=== PATIENT | female | born 1955 | race Caucasian/White ===

== ENCOUNTER 2016-08-13 08:34 | Outpatient (CLI) | payer OTHER ==
[2013-12-03 19:00] VITALS: BP 158/99
[2016-08-13 09:22] LABS: eGFR (African) > 60; eGFR (Non-African) > 60
== END 2016-08-13 08:35 ==
LOC: LAB 08:34
PROVIDERS: ATTEND Family Medicine
DX: E11.9 Type 2 diabetes mellitus without complications (principal); I10 Essential (primary) hypertension
CPT/HCPCS: 36415; 80053; 80061; 82043; 83036

== ENCOUNTER 2016-11-20 10:04 | Emergency (ER) | payer OTHER ==
--- NOTE | 2016-11-20 10:33 | ED Physician Documentation ---
Nausea/Vomiting/Diarrhea - HISTORIAN Historian: patient, spouse - HPI Chief Complaint: Nausea,Vomiting,Diarrhea Additional Information: says she hasn't eaten since thursday. She thinks she got nervous about their house and that is what caused this. says she has had this happen before. nauseated, sick to her stomach every time she tries to eat. No other complaints Onset: days ago Duration: constant Timing: gradual onset, still present Context: denies: out of country travel, bad food, recent trauma Severity: mild Further Comments: no - Associated Symptoms Vomiting: mild Diarrhea: other (none) Abdominal Pain: none - ROS CONST: none CVS/RESP: denies: chest pain, shortness of breath, cough GI/: denies: constipation, black stools, dark urine, problems urinating EYES/ENT: none MS/SKIN/LYMPH: denies: joint pain, leg swelling NEURO/PSYCH: none - PAST HX Past History: diabetes Type 2 Surgeries/Procedures: none Allergies/Adverse Reactions: Allergies Allergy/AdvReac Type Severity Reaction Status Date / Time No Known Drug Allergies Allergy Verified 11/20/16 10:39 - SOCIAL HX Smoking History: non-smoker Alcohol Use: none Drug Use: none - FAMILY HX Family History: none - VITAL SIGNS Vital Signs: Vital Signs Temp Pulse Resp BP Pulse Ox 98.8 F 90 20 203/104 94 11/20/16 10:05 11/20/16 10:05 11/20/16 10:05 11/20/16 10:05 11/20/16 10:05 - REVIEWED ASSESSMENTS Nursing Assessment Reviewed: Yes Vitals Reviewed: Yes ED Results Lab/Radiology - Lab Results Lab Results: Lab Results 11/20/16 11/20/16 11/20/16 11:50 10:40 10:40 WBC 24.50 K/ul H K/ul (4.00-12.00) RBC 5.43 M/ul H M/ul (3.90-5.20) Hgb 15.3 g/dL g/dL (12.0-16.0) Hct 45.5 % % (34.5-46.5) MCV 83.8 fl fl (80.0-100.0) MCH 28.2 pg pg (28.0-34.0) MCHC 33.6 g/dL g/dL (30.0-36.0) RDW 13.0 % % (11.3-14.3) Plt Count 348 K/mm3 K/mm3 (130-400) Neut % (Auto) 87.2 % H % (39.0-79.0) Lymph % (Auto) 6.9 % L % (16.0-50.0) [place] % (Auto) 4.1 % % (0.0-11.0) Eos % (Auto) 1.1 % % (0.0-6.8) Baso % (Auto) 0.4 (0.0-1.5) Neut # (Auto) 21.3 # k/uL H # k/uL (1.4-7.7) Lymph # (Auto) 1.7 # k/uL # k/uL (0.6-4.0) [place] # (Auto) 1.0 # k/uL H # k/uL (0.0-0.9) Eos # (Auto) 0.3 # k/uL # k/uL (0.0-0.6) Baso # (Auto) 0.1 # k/uL # k/uL (0.0-0.5) Reactive Lymphs % 0.4 % % (0.0-5.0) Reactive Lymphs # 0.1 # k/uL # k/uL (0.0-0.8) Sodium 137 mmol/L mmol/L (136-145) Potassium 3.5 mmol/L mmol/L (3.5-5.0) Chloride 95 mmol/L L mmol/L (98-110) Carbon Dioxide 32 mmol/L mmol/L (20-32) BUN 18 mg/dL mg/dL (10-26) Creatinine 0.5 mg/dL mg/dL (0.4-1.5) Estimated Creat Clear 167 Est GFR ( Amer) > 60 (60 - ) Est GFR (Non-Af Amer) > 60 (60 - ) Glucose 304 mg/dL H mg/dL (70-99) Calcium 9.7 mg/dL mg/dL (8.5-10.5) Total Bilirubin 0.6 mg/dL mg/dL (0.2-1.2) AST 18 U/L U/L (0-41) ALT 19 U/L U/L (0-45) Alkaline Phosphatase 94 U/L U/L (46-116) Total Protein 7.9 g/dL g/dL (6.0-8.5) Albumin 5.1 g/dL g/dL (3.0-5.5) Amylase 60 U/L U/L (20-104) Urine Color Yellow (YELLOW) Urine Appearance Clear (CLEAR) Urine pH 6.5 (5.0 - 8.0) Ur Specific [place] >=1.030 H (1.010-1.030) Urine Protein 3+ mg/dL H mg/dL (NEGATIVE) Urine Ketones 3+ mg/dL H mg/dL (NEGATIVE) Urine Occult Blood Negative (NEGATIVE) Urine Nitrite Negative (NEGATIVE) Urine Bilirubin 1+ H (NEGATIVE) Urine Urobilinogen 0.2 Eu Eu (0.2-1.0) Ur Leukocyte Esterase Negative (NEGATIVE) Urine RBC 0-2 (0-2 HPF) Urine WBC 0-2 (0-5 HPF) Ur Squamous Epith Cells Few (NEG-FEW) Amorphous Sediment Few H (NEGATIVE) Urine Bacteria Few H (NEGATIVE) Urine Mucus Present H (NEGATIVE) Urine Glucose 2+ mg/dL H mg/dL (NEGATIVE) - Radiology Radiology Impressions: CT shows urinary inflammation. - Orders Orders: ED Orders Category Date Time Status ABD SERIES PA CHEST [RAD] Stat Exams 11/20/[address] ABDOMEN PELVIS S [CT ABD & PELVIS W/O CON] Stat Exams 11/20/16 Ordered AMYLASE Routine Lab 11/20/16 10:40 Completed CBC/PLATELET/DIFF Routine Lab 11/20/16 10:40 Completed CMP Routine Lab 11/20/16 10:40 Completed LIPASE Routine Lab 11/20/16 10:40 Received URINALYSIS Routine Lab 11/20/16 11:50 Completed 0.9 % Sodium Chloride [Normal Saline] Med 11/20/16 11:30 Ordered 1,000 ml IV 1T 0.9 % Sodium Chloride [Normal Saline] 1,000 ml Med 11/20/16 12:40 Discontinued IV .STK-MED 0.9 % Sodium Chloride [Normal Saline] 1,000 ml Med 11/20/16 12:53 Active IV Q1H CloNIDine HCL [Catapress] Med 11/20/16 10:53 Discontinued 0.1 mg PO NOW ONE Insulin Regular, Human [Humulin R] Med 11/20/16 11:06 Discontinued 10 unit IV NOW ONE Insulin Regular, Human [Humulin R] Med 11/20/16 11:15 Discontinued 5 unit IV NOW ONE Lidocaine 2%Visc 15ml [Xylocaine] Med 11/20/16 10:39 Discontinued 600 mg .ROUTE .STK-MED ONE Mag Hydrox/Al Hydrox/Simeth [Mylanta] Med 11/20/16 10:39 Discontinued 30 ml PO .STK-MED ONE Mag Hydrox/Al Hydrox/Simeth [Mylanta] 30 ml Med 11/20/16 10:38 Discontinued Lidocaine 2%Visc 15ml [Xylocaine] 20 mg PHENobarb/HYOSCY/ATROPINE/SCOP [] 10 ml PO NOW Ondansetron HCl/Pf [Zofran 4 mg/2 ml] Med 11/20/16 10:36 Discontinued 4 mg IVP NOW ONE Nausea Physical Exam - EXAM General Appearance: no acute distress, anxious EENT: eye inspection normal, ENT inspection normal, pharynx normal Neck: normal inspection, supple Respiratory: no resp distress, chest non-tender, breath sounds normal CVS: reg rate & rhythm, heart sounds normal, equal pulses Abdomen: non-tender Back: non-tender Skin: warm/dry, normal color Extremities: non-tender Neuro/Psych: oriented X3 Discharge Clincal Impression: Hypovolemia associated with vomiting, Hyperglycemia UTI (urinary tract infection) Qualifiers: Urinary tract infection type: acute cystitis Hematuria presence: without hematuria Qualified Code(s): N30.00 - Acute cystitis without hematuria Nausea & vomiting Qualifiers: Vomiting type: unspecified Vomiting Intractability: non-intractable Qualified Code(s): R11.2 - Nausea with vomiting, unspecified Clincal Impression: (Ruled Out): Hypovolemia Referrals: Alex Michele MD [Primary Care Provider] - 2 Days Condition: Stable Disposition: 01 HOME, SELF-CARE Decision to Admit: NO Date of Decison to Admit: 11/20/16 Decision Time: 13:19
[2016-11-20] MEDS ORDERED: ONDANSETRON HCL/PF 4 MG/ 2ML VIAL IVP ONE (10:36)
[2016-11-20] MEDS ORDERED: MAG HYDROX/AL HYDROX/SIMETH 30 ML, Lidocaine 2%Visc 15ml 20 MG, PHENobarb/HYOSCY/ATROPI... PO ONE ×3 (10:38)
[2016-11-20] MEDS ORDERED: Lidocaine 2%Visc 15ml 20 MG/ML UDC ONE (10:39)
[2016-11-20] MEDS ORDERED: MAG HYDROX/AL HYDROX/SIMETH 30 ML UDC PO ONE (10:39)
[2016-11-20 10:51] LABS: BASOPHILS % 0.4 (0.0-1.5); EOSINOPHILS % 1.1 % (0.0-6.8); MEAN CORPUSCULAR HEMOGLOBIN 28.2 pg (28.0-34.0); MEAN CORPUSCULAR VOLUME 83.8 fl (80.0-100.0); MONOCYTES % 4.1 % (0.0-11.0); NEUTROPHILS # 21.3 # k/uL (1.4-7.7)
[2016-11-20] MEDS ORDERED: CloNIDine HCL 0.1 MG TABLET PO ONE (10:53)
[2016-11-20 10:58] LABS: eGFR (African) > 60; eGFR (Non-African) > 60
[2016-11-20] MEDS ORDERED: INSULIN REGULAR, HUMAN 100 UNIT/ML 3ML VIAL IV ONE ×2 (11:06→11:15)
[2016-11-20] MEDS ORDERED: NORMAL SALINE 500 ML IV.SOLN IV SCH (11:30)
[2016-11-20 11:55] LABS: APPEARANCE,URINE Clear (CLEAR); COLOR,URINE Yellow (YELLOW); OCCULT BLOOD,URINE Negative (NEGATIVE); PH URINE 6.5 (5.0 - 8.0); UROBILINOGEN URINE 0.2 Eu (0.2-1.0)
[2016-11-20 12:03] LABS: AMORPHOUS SEDIMENT,UR FEW (NEGATIVE)
[2016-11-20] MEDS ORDERED: 0.9 % SODIUM CHLORIDE 1,000 ML IV ONE ×2 (12:40→12:53)
[2016-11-20 13:47] VITALS: BP 163/89
--- NOTE | 2016-11-20 15:11 | Diagnostic Imaging Report ---
[facility] [id number] [facility].[address] [id number] Report Submission Date: Nov 20, 2016 11:33:52 AM CDT Patient Study Name: JHONNY GONZALEZ Date: Nov 20, 2016 10:55:43 AM CDT Modality Type: CR Gender: F Description: CHEST,ABDOMEN : 53 Institution: [facility] Physician: [facility] Examination: Obstruction series History: Abdominal discomfort Findings: 5 views obtained of the chest and abdomen. Single view of the chest demonstrates a mildly hypoventilated inspiratory effort. Minimal crowding of the central vasculature. No gross consolidation or effusion. No abnormal dilation of the large or small bowel. Air and stool throughout the large bowel. No suspicious calcification projecting over the renal fossa or the lower pelvic region. Osseous structures are appropriate for age. Impression: No focal infiltrate. No ileus or obstruction. No suspicious calcifications by plain film sensitivity. Electronically signed on Nov 20, 2016 11:33:52 AM CDT by: Eddie BLANCHARD
--- NOTE | 2016-11-20 15:12 | Diagnostic Imaging Report ---
[facility] [id number] [facility] [address] [place], [place]. [address] Report Submission Date: Nov 20, 2016 12:03:04 PM CDT Patient Study Name: JHONNY GONZALEZ Date: Nov 20, 2016 11:15:20 AM CDT Modality Type: CT\SR Gender: F Description: CT ABD & PELVIS W/O CO : 53 Institution: [facility] Physician: [facility] Examination: CT Abdomen/pelvis History: Nausea. Elevated white count. Comparison exams: Plain film dated 20 November 2016 Technique: CT Abdomen/pelvis without contrast protocol. Findings: Liver, spleen, adrenal glands, right kidney, pancreas and gallbladder are without irregularity given exam technique. No gallstone. No renal calcifications. Ureters are nondilated in their course through the abdomen and pelvis. Mild mesenteric stranding involving the region surrounding the proximal left ureter. Scattered pelvic phleboliths. Abdominal aorta with mild peripheral atherosclerotic disease. No abnormal dilation. Bowel without contrast limiting evaluation. No evidence for acute mesenteric inflammation or free air. Stool throughout the large bowel limiting sensitivity. Appendix is visualized and is without inflammatory changes. Sigmoid diverticula. No adjacent inflammatory changes. Umbilical hernia with omental/fat involvement. No bowel involvement. Osseous structures demonstrate degenerative changes. Lung bases dependent atelectasis and scarring. Impression: Possible mild proximal left ureteral inflammation - ureteritis. No evidence for nephro or ureterolithiasis. Correlate with patient's symptoms and laboratory values. No other abdominal mass or acute inflammatory process given exam technique. No gallstone. No abnormal bowel dilation or inflammatory process. Sigmoid diverticulosis. No evidence for acute diverticulitis. Umbilical hernia with fat/omental involvement. No bowel involvement. Electronically signed on Nov 20, 2016 12:03:04 PM CDT by: Eddie BLANCHARD
[2016-11-20 17:02] LABS: LIPASE 47 U/L (13-60)
== END 2016-11-20 13:30 | disposition home or self-care (01) ==
LOC: ED 10:04
DX: R73.9 Hyperglycemia, unspecified (principal); N30.00 Acute cystitis without hematuria; R11.2 Nausea with vomiting, unspecified
CPT/HCPCS: 74022; 74176; 80053; 81002; 82150; 83690; 85025; A9270; J1815; J2405; J7030; 96361; 96374; 96375; 99283; S1016

== ENCOUNTER 2016-11-24 11:00 | Outpatient (CLI) | payer OTHER ==
[2016-11-24 12:01] LABS: eGFR (African) > 60; eGFR (Non-African) > 60
== END 2016-11-24 11:02 ==
LOC: LAB 11:00
PROVIDERS: ATTEND Family Medicine
DX: E11.9 Type 2 diabetes mellitus without complications (principal)
CPT/HCPCS: 36415; 80053; 83036

== ENCOUNTER 2017-08-22 08:36 | Outpatient (CLI) | payer OTHER ==
[2017-08-22 08:52] LABS: BASOPHILS % 0.5 (0.0-1.5); EOSINOPHILS % 4.7 % (0.0-6.8); MEAN CORPUSCULAR HEMOGLOBIN 27.9 pg (28.0-34.0); MEAN CORPUSCULAR VOLUME 86.6 fl (80.0-100.0); MONOCYTES % 5.2 % (0.0-11.0); NEUTROPHILS # 5.8 # k/uL (1.4-7.7)
[2017-08-22 09:12] LABS: eGFR (Non-African) > 60
== END 2017-08-22 08:37 ==
LOC: LAB 08:36
PROVIDERS: ATTEND Family Medicine
DX: E11.65 Type 2 diabetes mellitus with hyperglycemia (principal); D72.829 Elevated white blood cell count, unspecified
CPT/HCPCS: 36415; 80053; 80061; 83036; 85025